=== PATIENT | male | born 1940 | race Caucasian/White ===

== ENCOUNTER 2018-11-02 15:35 | Emergency (ER) | payer MEDICARE, BC, OTHER ==
--- NOTE | 2018-11-02 16:05 | EDM.PDOC ---
ED HPI GENERAL MEDICAL PROBLEM - General Chief Complaint: Respiratory Problem Stated Complaint: LEFT SIDE OF BODY PAINS,SOB Time Seen by Provider: 11/02/18 15:50 Source of Information: Reports: Patient, Family History Limitations: Reports: No Limitations - History of Present Illness INITIAL COMMENTS - FREE TEXT/NARRATIVE: This 78 yo male patient reports to the ED with increased shortness of breath and intermittent left sided pain. The patient reports his shortness of breath has gotten much worse today. The patient's reports she tried to get an appointment in the [facility], but his provider did not have any additional appointments today. The patient's provider advised him to come to the ED to be seen. The patient reports he did not have a neb treatment today because he forgot. The patient reports increased pain in the right side of his back when he takes deep breaths. The patient denies any history of falls or other trauma. Onset: Today Duration: Constant Location: Reports: Chest, Back (upper back (initially left side then right side with deep breaths)) Quality: Reports: Ache, Sharp Severity: Moderate Improves with: Reports: None Worsens with: Reports: Breathing Associated Symptoms: Reports: Shortness of Breath (with a history of COPD) Treatments BOTTOM TURNER: Denies: Breathing Treatments - Related Data Allergies Allergy/AdvReac Type Severity Reaction Status Date / Time Penicillins Allergy Severe Hives Verified 11/02/18 15:51 lorazepam [From Ativan] Allergy Agitation Verified 11/02/18 15:51 Sulfa (Sulfonamide Allergy Itching Verified 11/02/18 15:51 Antibiotics) Home Meds: Home Meds Albuterol Sulfate [Ventolin Hfa] 2 puff IH Q6HR PRN 02/09/14 [History] Albuterol [Proventil Neb Soln] 1 ampule NEB QID PRN 02/09/14 [History] Aspirin [Low Dose Aspirin EC] 81 mg PO DAILY 02/09/14 [History] Cholecalciferol (Vitamin D3) [Vitamin D] 2,000 unit PO DAILY 02/09/14 [History] Citalopram Hydrobromide [Celexa] 20 mg PO DAILY 02/09/14 [History] Clopidogrel [Plavix] 75 mg PO DAILY 02/09/14 [History] Docusate Sodium [Colace] 100 mg PO DAILY PRN 02/09/14 [History] Nitroglycerin [Nitrostat] 0.4 mg SL ASDIRECTED PRN 02/09/14 [History] Omeprazole 40 mg PO QAM 02/09/14 [History] Tamsulosin [Tamsulosin 24 Hr] 0.4 mg PO BEDTIME 02/09/14 [History] Tiotropium [Spiriva Handihaler] 1 cap INH DAILY 02/09/14 [History] Tristan Cit/Mag/D3/Zn/Business Unit Manager/Marcelino/Bor [Citracal-Vit D + Magnesium] 2 tab PO DAILY 10/06 [History] Finasteride 5 mg PO DAILY 02/25/17 [History] Past Medical History HEENT History: Reports: Hard of Hearing, Impaired Vision Cardiovascular History: Reports: Pacemaker, Stents Respiratory History: Reports: COPD Genitourinary History: Reports: BPH Neurological History: Reports: Other (See Below) Other Neuro History: very forgetful Endocrine/Metabolic History: Reports: Diabetes, Type II - Past Surgical History GI Surgical History: Reports: Other (See Below) Social & Family History - Family History Family Medical History: Noncontributory - Tobacco Use Smoking Status *Q: Former Smoker Used Tobacco, but Quit: Yes Month/Year Tobacco Last Used: 1979 - Caffeine Use Caffeine Use: Reports: Coffee - Recreational Drug Use Recreational Drug Use: No ED ROS GENERAL - Review of Systems Review Of Systems: ROS reveals no pertinent complaints other than HPI. ED EXAM, GENERAL - Physical Exam Exam: See Below Exam Limited By: No Limitations General Appearance: Alert, WD/WN, Mild Distress, Thin Eye Exam: Bilateral Eye: EOMI, Normal Inspection, PERRL Ears: Normal External Exam, Normal Canal, Hearing Grossly Normal, Normal TMs Nose: Normal Inspection, Normal Mucosa, No Blood Throat/Mouth: Normal Inspection, Normal Lips, Normal Teeth, Normal Gums, Normal Oropharynx, Normal Voice, No Airway Compromise Head: Atraumatic, Normocephalic Neck: Normal Inspection, Supple, Non-Tender, Full Range of Motion Respiratory/Chest: Decreased Breath Sounds (throughout lungs) Cardiovascular: Normal Peripheral Pulses, Regular Rate, Rhythm, No Edema, No Gallop, No JVD, No Murmur, No Rub GI/Abdominal: Normal Bowel Sounds, Soft, Non-Tender, No Organomegaly, No Distention, No Abnormal Bruit, No Mass (Male) Exam: Deferred Rectal (Males) Exam: Deferred Back Exam: Normal Inspection, Full Range of Motion, NT Extremities: Normal Inspection, Normal Range of Motion, Non-Tender, Normal Capillary Refill, No Pedal Edema Neurological: Alert, Oriented, CN II-XII Intact, Normal Cognition, Normal Gait, Normal Reflexes, No Motor/Sensory Deficits Psychiatric: Normal Affect, Normal Mood Skin Exam: Warm, Dry, Intact, Normal Color, No Rash Lymphatic: No Adenopathy Course - Vital Signs Last Recorded V/S: Last Vital Signs Temp 36.8 C 11/02/18 15:44 Pulse 79 11/02/18 16:25 Resp 25 H 11/02/18 15:44 BP 124/71 11/02/18 15:44 Pulse Ox 92 L 11/02/18 15:44 - Orders/Labs/Meds Orders: Active Orders 24 hr Category Date Time Status EKG Documentation Completion [RC] URGENT Care 11/02/18 15:43 Ordered RT Aerosol Therapy [RC] ASDIRECTED Care 11/02/18 16:07 Ordered CULTURE BLOOD [BC] Stat Lab 11/02/18 15:43 Ordered cefTRIAXone [Rocephin] 1 gm Med 11/02/18 17:07 Ordered Sodium Chloride 0.9% [Normal Saline] 50 ml IV ONETIME Medication Orders Ceftriaxone Sodium 1 gm/ (Sodium Chloride) 50 mls @ 50 mls/hr IV ONETIME ONE Stop: 11/02/18 18:06 Labs: Laboratory Tests 11/02/18 11/02/18 11/02/18 Range/Units 16:00 16:00 16:00 WBC 8.7 (5.0-10.0) 10^3/uL RBC 4.37 L (4.6-6.2) 10^6/uL Hgb 11.6 L (14.0-18.0) g/dL Hct 36.9 L (40.0-54.0) % MCV 84.4 (80-100) fL MCH 26.5 L (27.0-34.0) pg MCHC 31.4 L (33.0-35.0) g/dL Plt Count 182 (150-450) 10^3/uL Neut % (Auto) 68.5 (42.2-75.2) % Lymph % (Auto) 18.7 L (20.5-50.1) % [place] % (Auto) 10.2 H (2-8) % Eos % (Auto) 2.4 (1.0-3.0) % Baso % (Auto) 0.2 (0.0-1.0) % Sodium (135-145) mmol/L Potassium (3.6-5.0) mmol/L Chloride (101-111) mmol/L Carbon Dioxide (21.0-31.0) mmol/L Anion Gap BUN (7-18) mg/dL Creatinine (0.6-1.3) mg/dL Est Cr Clr Drug Dosing mL/min Estimated GFR (MDRD) BUN/Creatinine Ratio Glucose (74-105) mg/dL Lactic Acid 1.9 (0.5-2.2) mmol/L Calcium (8.4-10.2) mg/dl Total Bilirubin (0.2-1.0) mg/dL AST (10-42) IU/L ALT (10-60) IU/L Alkaline Phosphatase (42-121) IU/L Troponin I (0.00-0.02) ng/ml B-Natriuretic Peptide 71 (0-100) pg/ml Total Protein (6.7-8.2) g/dl Albumin (3.2-5.5) g/dl Globulin Albumin/Globulin Ratio 11/02/18 Range/Units 16:00 WBC (5.0-10.0) 10^3/uL RBC (4.6-6.2) 10^6/uL Hgb (14.0-18.0) g/dL Hct (40.0-54.0) % MCV (80-100) fL MCH (27.0-34.0) pg MCHC (33.0-35.0) g/dL Plt Count (150-450) 10^3/uL Neut % (Auto) (42.2-75.2) % Lymph % (Auto) (20.5-50.1) % [place] % (Auto) (2-8) % Eos % (Auto) (1.0-3.0) % Baso % (Auto) (0.0-1.0) % Sodium 140 (135-145) mmol/L Potassium 3.8 (3.6-5.0) mmol/L Chloride 105 (101-111) mmol/L Carbon Dioxide 25.0 (21.0-31.0) mmol/L Anion Gap 13.8 BUN 19 H (7-18) mg/dL Creatinine 1.6 H (0.6-1.3) mg/dL Est Cr Clr Drug Dosing 34.18 mL/min Estimated GFR (MDRD) 42 BUN/Creatinine Ratio 11.87 Glucose 147 H (74-105) mg/dL Lactic Acid (0.5-2.2) mmol/L Calcium 8.7 (8.4-10.2) mg/dl Total Bilirubin 0.7 (0.2-1.0) mg/dL AST 19 (10-42) IU/L ALT 8 L (10-60) IU/L Alkaline Phosphatase 74 (42-121) IU/L Troponin I < 0.02 (0.00-0.02) ng/ml B-Natriuretic Peptide (0-100) pg/ml Total Protein 6.8 (6.7-8.2) g/dl Albumin 3.8 (3.2-5.5) g/dl Globulin 3.0 Albumin/Globulin Ratio 1.27 Meds: Medications Generic Name Dose Route Start Last Admin Trade Name Freq PRN Reason Stop Dose Admin Ceftriaxone Sodium 1 gm/ 50 mls @ 50 mls/hr 11/02/18 17:07 Sodium Chloride IV 11/02/18 18:06 ONETIME ONE Discontinued Medications Generic Name Dose Route Start Last Admin Trade Name Freq PRN Reason Stop Dose Admin Albuterol/Ipratropium 3 ml 11/02/18 16:07 11/02/18 16:25 Duoneb 3.0-0.5 Mg/3 Ml NEB 11/02/18 16:08 3 ml ONETIME ONE Administration Methylprednisolone Sodium Succinate 40 mg 11/02/18 17:07 Solu-Medrol IVPUSH 11/02/18 17:08 ONETIME ONE Departure - Departure Time of Disposition: 17:14 Disposition: Home, Self-Care 01 Condition: Fair Clinical Impression: COPD exacerbation, Bronchitis - Discharge Information *PRESCRIPTION DRUG MONITORING PROGRAM REVIEWED*: Not Applicable *COPY OF PRESCRIPTION DRUG MONITORING REPORT IN PATIENT JOE: Not Applicable Instructions: Chronic Obstructive Pulmonary Disease, [id number], Acute Bronchitis, Adult, [id number] Forms: ED Department Discharge Care Plan Goals: The patient was advised of the examination, lab and x-ray results during the visit. The patient was given a breathing treatment, a dose of IV antibiotics and a dose of IV steroids while in the ED. The patient was discharged with a script for Azithromycin (500 mg) #5 to take 1 by mouth daily for 5 days and Prednisone (20 mg) #10 to take 2 by mouth daily for 5 days. The patient should follow-up with his primary care facility for continued evaluation and management. If the patient has any additional symptoms or concerns, the patient should either return to the emergency department or visit his primary care facility. - My Orders Last 24 Hours: My Active Orders 11/02/18 15:43 EKG Documentation Completion [RC] URGENT CULTURE BLOOD [BC] Stat 11/02/18 16:07 RT Aerosol Therapy [RC] ASDIRECTED 11/02/18 17:07 cefTRIAXone [Rocephin] 1 gm Sodium Chloride 0.9% [Normal Saline] 50 ml IV ONETIME - Assessment/Plan Last 24 Hours: My Active Orders 11/02/18 15:43 EKG Documentation Completion [RC] URGENT CULTURE BLOOD [BC] Stat 11/02/18 16:07 RT Aerosol Therapy [RC] ASDIRECTED 11/02/18 17:07 cefTRIAXone [Rocephin] 1 gm Sodium Chloride 0.9% [Normal Saline] 50 ml IV ONETIME
[2018-11-02] MEDS ORDERED: Albuterol/Ipratropium 3.0-0.5 MG/3 ML Neb Soln NEB ONE (16:07)
[2018-11-02 16:30] LABS: ANION GAP 13.8; CHLORIDE,CL 105 mmol/L (101-111); SODIUM,NA 140 mmol/L (135-145)
[2018-11-02] MEDS ORDERED: cefTRIAXone 1 GM in Sodium Chloride 0.9% 50 ML IV ONE (17:07)
[2018-11-02] MEDS ORDERED: methylPREDNISolone Sodium Succinate 40 MG/1 ML SDV IVPUSH ONE (17:07)
--- NOTE | 2018-11-02 17:08 | CR ---
Clinical history: 78-year-old male complaining of shortness of breath. History COPD and cardiac pacemaker. Interpretation: PA lateral chest films confirm generalized air trapping and bullous lesions unchanged since to October 2016. Small heart without cephalization of flow alveolar edema or dependent effusion. Cardiac pacemaker leads intact. No new lung mass, hilar lymphadenopathy or focal lobar pneumonia. No atelectasis/collapse. No pneumothorax or free subdiaphragmatic air. 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 CONCLUSION: No acute new cardiopulmonary abnormality since October 2016 exam. Severe COPD.
[2018-11-02 18:07] VITALS: BP 107/90
== END 2018-11-02 18:11 | disposition home or self-care (01) ==
LOC: DL.ED 15:35
DX: J44.1 Chronic obstructive pulmonary disease with (acute) exacerbation (principal); J40 Bronchitis, not specified as acute or chronic; E11.9 Type 2 diabetes mellitus without complications; Z87.891 Personal history of nicotine dependence; Z88.8 Allergy status to other drugs, medicaments and biological substances; Z95.5 Presence of coronary angioplasty implant and graft; Z88.2 Allergy status to sulfonamides; Z79.899 Other long term (current) drug therapy
CPT/HCPCS: 36415; 71046; 80053; 83605; 83880; 84484; 85025; 87040; 93005; 94640; 96365; 96375; 99285; J0696; J2920; J7050; J7620-GY

== ENCOUNTER 2019-01-15 20:29 | Emergency (ER) | payer MEDICARE, BC, OTHER ==
[2019-01-15 20:43] VITALS: BP 120/82
--- NOTE | 2019-01-15 23:17 | EDM.PDOC ---
ED HPI GENERAL MEDICAL PROBLEM - General Chief Complaint: General Stated Complaint: NOT FEELING WELL [id number] Time Seen by Provider: 01/15/19 22:00 Source of Information: Reports: Patient, Family, RN History Limitations: Reports: Other - History of Present Illness INITIAL COMMENTS - FREE TEXT/NARRATIVE: ED with spouse with vague c/o of "something with right wrist' Ongoing at least 1-2 days, intermittent, laternating with 1-2 weeks, Patient unsure if weakness or pain, Unsure if numb. No c/o of generalized weakness . No fever reported by patient or spouse. Appetite gradually decreasing, slow weight loss over period of months. Oxygen dependent at night. not noting any symptoms, states patient just thought he should be checked out. [facility] care at [facility]. Right Hand Pain Score (Numeric/FACES): 6 - Related Data Allergies Allergy/AdvReac Type Severity Reaction Status Date / Time Penicillins Allergy Severe Hives Verified 01/15/19 20:49 lorazepam [From Ativan] Allergy Agitation Verified 01/15/19 20:49 Sulfa (Sulfonamide Allergy Itching Verified 01/15/19 20:49 Antibiotics) Home Meds: Home Meds Albuterol Sulfate [Ventolin Hfa] 2 puff IH Q6HR PRN 02/09/14 [History] Albuterol [Proventil Neb Soln] 1 ampule NEB QID PRN 02/09/14 [History] Aspirin [Low Dose Aspirin EC] 81 mg PO DAILY 02/09/14 [History] Cholecalciferol (Vitamin D3) [Vitamin D] 2,000 unit PO DAILY 02/09/14 [History] Citalopram Hydrobromide [Celexa] 20 mg PO DAILY 02/09/14 [History] Clopidogrel [Plavix] 75 mg PO DAILY 02/09/14 [History] Docusate Sodium [Colace] 100 mg PO DAILY PRN 02/09/14 [History] Nitroglycerin [Nitrostat] 0.4 mg SL ASDIRECTED PRN 02/09/14 [History] Omeprazole 40 mg PO QAM 02/09/14 [History] Tamsulosin [Tamsulosin 24 Hr] 0.4 mg PO BEDTIME 02/09/14 [History] Tiotropium [Spiriva Handihaler] 1 cap INH DAILY 02/09/14 [History] Tristan Cit/Mag/D3/Zn/Drive In Waiter/Waitress/Marcelino/Bor [Citracal-Vit D + Magnesium] 2 tab PO DAILY 10/06 [History] Finasteride 5 mg PO DAILY 02/25/17 [History] Past Medical History HEENT History: Reports: Hard of Hearing, Impaired Vision Cardiovascular History: Reports: Pacemaker, Stents Respiratory History: Reports: COPD Genitourinary History: Reports: BPH Neurological History: Reports: Other (See Below) Other Neuro History: very forgetful Endocrine/Metabolic History: Reports: Diabetes, Type II - Past Surgical History GI Surgical History: Reports: Other (See Below) Social & Family History - Family History Family Medical History: Noncontributory - Tobacco Use Smoking Status *Q: Former Smoker Used Tobacco, but Quit: Yes Month/Year Tobacco Last Used: 1992 - Caffeine Use Caffeine Use: Reports: Coffee, Soda - Recreational Drug Use Recreational Drug Use: No ED ROS GENERAL - Review of Systems Review Of Systems: ROS reveals no pertinent complaints other than HPI. ED EXAM, GENERAL - Physical Exam Exam: See Below Exam Limited By: No Limitations General Appearance: Alert, No Apparent Distress, Thin Eye Exam: Bilateral Eye: EOMI Ears: Normal External Exam, Hearing Loss Nose: Normal Inspection Throat/Mouth: Normal Inspection Head: Atraumatic, Normocephalic Neck: Normal Inspection, Full Range of Motion Respiratory/Chest: No Respiratory Distress, Lungs Clear, Decreased Breath Sounds. No: Respiratory Distress, Rales, Wheezing Cardiovascular: Normal Peripheral Pulses GI/Abdominal: Normal Bowel Sounds Extremities: Normal Inspection, Normal Range of Motion, No Pedal Edema, Normal Capillary Refill. No: Slow Capillary Refill, Joint Swelling, Limited Range of Motion, Increased Warmth, Mottled, Pallor, Redness Neurological: Alert, Oriented, No Motor/Sensory Deficits, Other (forgetful) Psychiatric: Normal Affect, Normal Mood Skin Exam: Warm, Dry, Intact, Normal Color Course - Vital Signs Last Recorded V/S: Last Vital Signs Temp 97.8 F 01/15/19 20:40 Pulse 78 01/15/19 20:40 Resp 20 01/15/19 20:40 BP 120/82 01/15/19 20:40 Pulse Ox 94 L 01/15/19 20:40 - Orders/Labs/Meds Labs: Laboratory Tests 01/15/19 01/15/19 Range/Units 22:54 22:54 WBC 7.3 (5.0-10.0) 10^3/uL RBC 4.79 (4.6-6.2) 10^6/uL Hgb 12.9 L (14.0-18.0) g/dL Hct 40.4 (40.0-54.0) % MCV 84.3 (80-100) fL MCH 26.9 L (27.0-34.0) pg MCHC 31.9 L (33.0-35.0) g/dL Plt Count 167 (150-450) 10^3/uL Neut % (Auto) 63.4 (42.2-75.2) % Lymph % (Auto) 21.2 (20.5-50.1) % [place] % (Auto) 10.7 H (2-8) % Eos % (Auto) 4.3 H (1.0-3.0) % Baso % (Auto) 0.4 (0.0-1.0) % Sodium 139 (135-145) mmol/L Potassium 4.0 (3.6-5.0) mmol/L Chloride 102 (101-111) mmol/L Carbon Dioxide 27.0 (21.0-31.0) mmol/L Anion Gap 14.0 BUN 25 H (7-18) mg/dL Creatinine 1.1 (0.6-1.3) mg/dL Est Cr Clr Drug Dosing 49.71 mL/min Estimated GFR (MDRD) > 60 BUN/Creatinine Ratio 22.72 Glucose 266 H (74-105) mg/dL Calcium 9.1 (8.4-10.2) mg/dl Total Bilirubin 0.8 (0.2-1.0) mg/dL AST 16 (10-42) IU/L ALT 13 (10-60) IU/L Alkaline Phosphatase 76 (42-121) IU/L Total Protein 7.1 (6.7-8.2) g/dl Albumin 4.1 (3.2-5.5) g/dl Globulin 3.0 Albumin/Globulin Ratio 1.37 Departure - Departure Time of Disposition: 23:42 Disposition: Home, Self-Care 01 Condition: Good Clinical Impression: Anxiety about health, Hyperglycemia COPD (chronic obstructive pulmonary disease) Qualifiers: COPD type: chronic bronchitis Chronic bronchitis type: simple Qualified Code(s) : J41.0 - Simple chronic bronchitis - Discharge Information *PRESCRIPTION DRUG MONITORING PROGRAM REVIEWED*: Not Applicable *COPY OF PRESCRIPTION DRUG MONITORING REPORT IN PATIENT JOE: Not Applicable Instructions: Arthritis Referrals: PCP,None [Primary Care Provider] - Forms: ED Department Discharge Additional Instructions: continue home medications follow up with primary care one week , sooner if change in status
[2019-01-15 23:36] LABS: CHLORIDE,CL 102 mmol/L (101-111); SODIUM,NA 139 mmol/L (135-145)
== END 2019-01-15 23:50 | disposition home or self-care (01) ==
LOC: DL.ED 20:29
DX: F41.9 Anxiety disorder, unspecified (principal); J41.0 Simple chronic bronchitis; E11.65 Type 2 diabetes mellitus with hyperglycemia; Z88.0 Allergy status to penicillin; Z88.8 Allergy status to other drugs, medicaments and biological substances; Z88.2 Allergy status to sulfonamides; Z79.899 Other long term (current) drug therapy; Z79.82 Long term (current) use of aspirin; Z87.891 Personal history of nicotine dependence
CPT/HCPCS: 36415; 80053; 85025; 99283

== ENCOUNTER 2021-01-17 17:21 | Emergency (ER) | payer MEDICARE, BC, OTHER ==
[2021-01-17] MEDS ORDERED: Ondansetron 4 MG/2 ML SDV IV ONE (17:42)
[2021-01-17] MEDS ORDERED: fentaNYL 100 MCG/2 ML SDV IVPUSH ONE (17:42)
[2021-01-17] MEDS ORDERED: Sodium Chloride 0.9% 500 ML IV SCH (17:45)
[2021-01-17] MEDS: Sodium Chloride 0.9% 10 ML Syringe FLUSH PRN ×2 (17:59→18:06)
[2021-01-17 18:17] LABS: ANION GAP 11.4 mEq/L (7-13); CHLORIDE,CL 101 mmol/L (98-107); SODIUM,NA 140 mmol/L (136-145)
--- NOTE | 2021-01-17 18:44 | EDM.PDOC ---
Scribed by Georgia Felder 01/17/21 1839 for Awais Gautam MD <Awais Gautam - Last Filed: 01/17/21 18:38> ED HPI GENERAL MEDICAL PROBLEM - General Chief Complaint: General Stated Complaint: AMBULANCE Time Seen by Provider: 01/17/21 17:31 Source of Information: Reports: Patient, EMS, EMS Notes Reviewed, RN, RN Notes Reviewed History Limitations: Reports: No Limitations - History of Present Illness INITIAL COMMENTS - FREE TEXT/NARRATIVE: Patient arrives to the ED by [facility]. Patient states he fell at home from a standing position and has pain to the right posterior chest wall and back. Denies hitting his head. Denies neck pain or injury. 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 He now weighs 82 pounds. Patient states that he is suppose to have an EGD this coming week. Denies fever or chills. Onset: Today Duration: Constant Location: Reports: Neck, Chest Quality: Reports: Ache Severity: Severe Improves with: Reports: None Worsens with: Reports: None Associated Symptoms: Reports: No Other Symptoms - Related Data Allergies Allergy/AdvReac Type Severity Reaction Status Date / Time Penicillins Allergy Severe Hives Verified 01/17/21 18:12 lorazepam [From Ativan] Allergy Agitation Verified 01/17/21 18:12 Sulfa (Sulfonamide Allergy Itching Verified 01/17/21 18:12 Antibiotics) Home Meds: Home Meds Albuterol Sulfate [Ventolin Hfa] 2 puff IH Q6HR PRN 02/09/14 [History] Albuterol [Proventil Neb Soln] 1 ampule NEB QID PRN 02/09/14 [History] Aspirin [Low Dose Aspirin EC] 81 mg PO DAILY 02/09/14 [History] Cholecalciferol (Vitamin D3) [Vitamin D] 2,000 unit PO DAILY 02/09/14 [History] Citalopram Hydrobromide [Celexa] 20 mg PO DAILY 02/09/14 [History] Docusate Sodium [Colace] 100 mg PO DAILY PRN 02/09/14 [History] Nitroglycerin [Nitrostat] 0.4 mg SL ASDIRECTED PRN 02/09/14 [History] Omeprazole 40 mg PO QAM 02/09/14 [History] Tamsulosin [Tamsulosin 24 Hr] 0.4 mg PO BEDTIME 02/09/14 [History] Tiotropium [Spiriva Handihaler] 1 cap INH DAILY 02/09/14 [History] Tristan Cit/Mag/D3/Zn/Outside Deliverer/Marcelino/Bor [Citracal-Vit D + Magnesium] 2 tab PO DAILY 10/06/14 [History] Finasteride 5 mg PO DAILY 02/25/17 [History] Past Medical History HEENT History: Reports: Hard of Hearing, Impaired Vision Cardiovascular History: Reports: Pacemaker, Stents Respiratory History: Reports: COPD Genitourinary History: Reports: BPH Neurological History: Reports: Other (See Below) Other Neuro History: very forgetful Endocrine/Metabolic History: Reports: Diabetes, Type II - Past Surgical History GI Surgical History: Reports: Other (See Below) Social & Family History - Family History Family Medical History: No Pertinent Family History - Caffeine Use Caffeine Use: Reports: Coffee, Soda ED ROS GENERAL - Review of Systems Review Of Systems: Comprehensive ROS is negative, except as noted in HPI. ED EXAM, GENERAL - Physical Exam Exam: See Below Exam Limited By: No Limitations General Appearance: Alert, No Apparent Distress, Thin, Cachetic Eye Exam: Bilateral Eye: EOMI, Normal Inspection, PERRL Ears: Hearing Loss (Chronic) Nose: Normal Inspection, No Blood Throat/Mouth: Normal Lips, Normal Voice, No Airway Compromise Head: Atraumatic, Normocephalic Neck: Normal Inspection, Supple, Non-Tender, Full Range of Motion, Other (C- spine cleared by Hx and exam.) Respiratory/Chest: No Respiratory Distress, No Accessory Muscle Use, Decreased Breath Sounds, Crackles (Coarse breath sounds), Other (Right posterior chest wall tenderness overlying the ribs.). No: Rales, Rhonchi, Wheezing Cardiovascular: Regular Rate, Rhythm, No Edema GI/Abdominal: Normal Bowel Sounds, Soft, No Distention, Tender (RUQ and LUQ tenderness). No: Guarding, Rigid, Rebound Back Exam: Decreased Range of Motion, Vertebral Tenderness (Generalized thoracic and lumbar regional tenderness) Extremities: Normal Inspection, Normal Range of Motion, Non-Tender, Normal Capillary Refill, No Pedal Edema Neurological: Alert, Oriented (to person and "hospital" only. Unware of date or specific town.), No Motor/Sensory Deficits Psychiatric: Normal Affect, Normal Mood Skin Exam: Warm, Dry, Intact, No Rash Course - Re-Assessments/Exams Free Text/Narrative Re-Assessment/Exam: 01/17/21 19:00 Care of pt transferred to Lai CHISHOLM at shift change. Departure - Departure Disposition: Home, Self-Care Clinical Impression: Fall from ground level, History of progressive weakness - Discharge Information Forms: ED Department Discharge Care Plan Goals: The patient's was advised of the examination, lab and CT results during the visit. The discussed possible hospitalization with our hospitalist (Dr. Sierra) and decided to bring the patient home with her. The patient should follow- up with his primary care facility next week for continued evaluation and management. If the patient has any additional symptoms or concerns, the patient should either return to the emergency department or visit his primary care facility. Sepsis Event Note (ED) - Evaluation Sepsis Screening Result: No Definite Risk <Lai Tim M - Last Filed: 01/17/21 21:55> Course - Vital Signs Last Recorded V/S: Last Vital Signs Temp 37.1 C 01/17/21 18:46 Pulse 80 01/17/21 18:46 Resp 19 01/17/21 18:46 BP 124/87 01/17/21 18:46 Pulse Ox 97 01/17/21 18:46 - Orders/Labs/Meds Orders: Active Orders 24 hr Category Date Time Status Peripheral IV Care [RC] . DIRECTED Care 01/17/21 17:40 Active UA RFX JENS AND CULT IF INDIC [URIN] Stat Lab 01/17/21 17:40 Ordered Sodium Chloride 0.9% [Normal Saline] 500 ml Med 01/17/21 17:45 Active IV .BOLUS Sodium Chloride 0.9% [Saline Flush] Med 01/17/21 17:39 Active 10 ml FLUSH ASDIRECTED PRN Peripheral IV Insertion Adult [OM.PC] Stat Oth 01/17/21 17:40 Ordered Medication Orders Sodium Chloride (Normal Saline) 500 mls @ 250 mls/hr IV .BOLUS MIA Last Admin: 01/17/21 18:45 Dose: 250 mls/hr Documented by: KACI Sodium Chloride (Sodium Chloride 0.9% 10 Ml Syringe) 10 ml FLUSH ASDIRECTED PRN PRN Reason: Keep Vein Open Last Admin: 01/17/21 18:06 Dose: 10 ml Documented by: Admin: 01/17/21 17:59 Dose: 10 ml Documented by: HARRISON Labs: Laboratory Tests 01/17/21 01/17/21 01/17/21 Range/Units 17:51 17:51 19:51 WBC 6.7 (5.0-10.0) 10^3/uL RBC 4.87 (4.6-6.2) 10^6/uL Hgb 15.0 D (14.0-18.0) g/dL Hct 45.2 (40.0-54.0) % MCV 92.8 D (80-100) fL MCH 30.8 (27.0-34.0) pg MCHC 33.2 (33.0-35.0) g/dL Plt Count 175 (150-450) 10^3/uL Neut % (Auto) 68.6 (42.2-75.2) % Lymph % (Auto) 23.6 (20.5-50.1) % Cass % (Auto) 7.3 (2-8) % Eos % (Auto) 0.4 L (1.0-3.0) % Baso % (Auto) 0.1 (0.0-1.0) % Sodium 140 (136-145) mmol/L Potassium 4.4 (3.5-5.1) mmol/L Chloride 101 (98-107) mmol/L Carbon Dioxide 32 (21-32) mmol/L Anion Gap 11.4 (7-13) mEq/L BUN 22 H (7-18) mg/dL Creatinine 1.12 (0.70-1.30) mg/dL Est Cr Clr Drug Dosing 27.76 mL/min Estimated GFR (MDRD) > 60 BUN/Creatinine Ratio 19.6 (No establ ref range) Glucose 188 H (70-99) mg/dL Calcium 9.0 (8.5-10.1) mg/dL Total Bilirubin 0.9 (0.2-1.0) mg/dL AST 14 L (15-37) U/L ALT 19 (16-63) U/L Alkaline Phosphatase 76 (46-116) U/L B-Natriuretic Peptide 99 (0-100) pg/ml Total Protein 6.8 (6.4-8.2) g/dL Albumin 3.4 (3.4-5.0) g/dL Globulin 3.4 Albumin/Globulin Ratio 1.0 SARS-CoV-2 RNA (KERRI) Negative (NEGATIVE) Meds: Medications Generic Name Dose Route Start Last Admin Trade Name Freq PRN Reason Stop Dose Admin Sodium Chloride 500 mls @ 250 mls/hr 01/17/21 17:45 01/17/21 18:45 Normal Saline IV 250 mls/hr .BOLUS MIA Administration Sodium Chloride 10 ml 01/17/21 17:39 01/17/21 18:06 Sodium Chloride 0.9% 10 Ml Syringe FLUSH 10 ml ASDIRECTED PRN Administration Keep Vein Open Discontinued Medications Generic Name Dose Route Start Last Admin Trade Name Freq PRN Reason Stop Dose Admin Fentanyl 25 mcg 01/17/21 17:42 01/17/21 18:03 Fentanyl 100 Mcg/2 Ml Sdv IVPUSH 01/17/21 17:43 25 mcg ONETIME ONE Administration Ondansetron HCl 4 mg 01/17/21 17:42 01/17/21 17:58 Ondansetron 4 Mg/2 Ml Sdv IV 01/17/21 17:43 4 mg ONETIME ONE Administration - Re-Assessments/Exams Free Text/Narrative Re-Assessment/Exam: 01/17/21 19:37 Patient care was taken over at shift change. The patient's CT results were reviewed. The patient was advised of the CT results. The patient had a difficult time relaying anything about his history or reason for visit. The patient spoke about a truck. A CT of his head was ordered due to the level of confusion. 01/17/21 19:47 The patient's was present and reports that the patient is normally very confused. The reports she has been talking with the patient's primary care provider (Noy Chang) over the past 3 weeks with the intention of getting the patient into a care facility ([facility] but there has not been any progress in that direction at this time. The patient's reports she has been having more difficulties caring for the patient throughout the past year. The patient is not able to care for himself while at home. 01/17/21 21:52 Dr. Sierra (Hospitalist) came to the ED to discuss possible options with the patient's . The patient's requested to have the patient discharged to home with her. She will work with his primary care provider for continued evaluation and care (possible group home). Departure - Departure Time of Disposition: 21:53 Condition: Fair - Discharge Information *PRESCRIPTION DRUG MONITORING PROGRAM REVIEWED*: Not Applicable *COPY OF PRESCRIPTION DRUG MONITORING REPORT IN PATIENT JOE: Not Applicable Sepsis Event Note (ED) - Focused Exam Vital Signs: Vital Signs Temp Pulse Resp BP Pulse Ox 01/17/21 18:46 37.1 C 80 19 124/87 97 01/17/21 17:30 36.4 C 82 29 H 145/109 H 100 I have read and agree with the documentation that has been completed regarding this visit. By signing this record, I attest that the documentation was completed in my physical presence and is an accurate record of the encounter.
[2021-01-17 18:46] VITALS: BP 124/87; PULSE 80
--- NOTE | 2021-01-17 19:20 | CT ---
PROCEDURE INFORMATION: Exam: CT Thoracic Spine Without Contrast Exam date and time: 01/17/2021 6:34 PM Age: 80 years old Clinical indication: Other: Fall; Additional info: Fall, back pain TECHNIQUE: Imaging protocol: Computed tomography images of the thoracic spine without contrast. Radiation optimization: All CT scans at this facility use at least one of these dose optimization techniques: automated exposure control; mA and/or kV adjustment per patient size (includes targeted exams where dose is matched to clinical indication); or iterative reconstruction. COMPARISON: No relevant prior studies available. FINDINGS: Vertebrae: [id number] grade degenerative changes are present within the thoracic spine. No compression fracture identified. Small sclerotic foci are present within the T5 and T6 vertebral bodies. These are nonspecific and could represent small vertebral hemangiomas or bone islands. They have a generally benign appearance. 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 IMPRESSION: 1. No acute abnormality within the thoracic spine. Benign-appearing sclerotic lesions within T5 and T6 possibly representing small hemangiomas or bone islands. No compression fracture identified. 2. Moderate to advanced COPD/emphysema.
--- NOTE | 2021-01-17 19:21 | CT ---
PROCEDURE INFORMATION: Exam: CT Lumbar Spine Without Contrast Exam date and time: 01/17/2021 6:34 PM Age: 80 years old Clinical indication: Other: Fall; Additional info: Fall, back pain TECHNIQUE: Imaging protocol: Computed tomography images of the lumbar spine without contrast. Radiation optimization: All CT scans at this facility use at least one of these dose optimization techniques: automated exposure control; mA and/or kV adjustment per patient size (includes targeted exams where dose is matched to clinical indication); or iterative reconstruction. COMPARISON: No relevant prior studies available. FINDINGS: Vertebrae: Moderate to advanced degenerative changes are present within the lumbar spine most advanced at L5-S1. Vertebral body height and alignment are well maintained. No compression fractures are identified. Sclerotic lesion present within the anterior aspect of the L5 vertebral body on the right. This is nonspecific and could represent a hemangioma. Stomach and bowel: Moderate amount of stool is noted within the colon especially the rectosigmoid junction. Fecal impaction is possible. Soft tissues: Unremarkable. IMPRESSION: 1. Degenerative change without acute fracture or subluxation within the lumbar spine. 2. Incidental note is made of a large amount of stool within the colon especially the rectosigmoid junction. Fecal impaction is possible.
--- NOTE | 2021-01-17 19:27 | CT ---
PROCEDURE INFORMATION: Exam: CT Chest Without Contrast; Diagnostic Exam date and time: 01/17/2021 6:34 PM Age: 80 years old Clinical indication: Other: Pain; Additional info: Fall, RT posterior chest pain, abdominal pain TECHNIQUE: Imaging protocol: Diagnostic computed tomography of the chest without contrast. Radiation optimization: All CT scans at this facility use at least one of these dose optimization techniques: automated exposure control; mA and/or kV adjustment per patient size (includes targeted exams where dose is matched to clinical indication); or iterative reconstruction. COMPARISON: No relevant prior studies available. FINDINGS: Tubes, catheters and devices: A left-sided pacemaker is present. Lungs: Moderate to advanced COPD/emphysema present within the lungs. No significant pulmonary mass or nodule identified. Depending on smoking history, consider low-dose annual screening CT scan. Pleural spaces: Unremarkable. No pneumothorax. No pleural effusion. Heart: Moderate grade atherosclerotic changes present involving the coronary arteries. The heart is not enlarged. There is no pericardial effusion. Aorta: Unremarkable. No aortic aneurysm. Lymph nodes: Unremarkable. No enlarged lymph nodes. Bones/joints: Moderate grade degenerative changes are present within the thoracic spine. No compression fracture identified. Soft tissues: Unremarkable. IMPRESSION: 1. Moderate to advanced COPD/emphysema. 2. Degenerative change within the thoracic spine. No acute fracture the thoracic vertebral bodies or ribs identified. PROCEDURE INFORMATION: Exam: CT Abdomen And Pelvis Without Contrast Exam date and time: 01/17/2021 6:34 PM Age: 80 years old Clinical indication: Other: Pain; Additional info: Fall, RT posterior chest pain, abdominal pain TECHNIQUE: Imaging protocol: Computed tomography of the abdomen and pelvis without contrast. Radiation optimization: All CT scans at this facility use at least one of these dose optimization techniques: automated exposure control; mA and/or kV adjustment per patient size (includes targeted exams where dose is matched to clinical indication); or iterative reconstruction. COMPARISON: No relevant prior studies available. FINDINGS: Liver: Normal. No mass. Gallbladder and bile ducts: The gallbladder appears to have been removed. There is no biliary ductal dilatation. Pancreas: Normal. No ductal dilation. Spleen: Normal. No splenomegaly. Adrenal glands: Normal. No mass. Kidneys and ureters: Normal. No hydronephrosis. Stomach and bowel: Large amount of stool is present within the colon especially the rectosigmoid junction. Mild distention proximal colonic loops identified. Findings suggest possible fecal impaction with possible early obstructive features. There appears to be circumferential wall thickening of the rectosigmoid junction. Correlate for possible proctitis or rectal mass. Appendix: No evidence of appendicitis. Intraperitoneal space: Unremarkable. No free air. No significant fluid collection. Vasculature: Moderate grade atherosclerotic change of the abdominal aorta is present without aneurysm. Lymph nodes: Unremarkable. No enlarged lymph nodes. Urinary bladder: Unremarkable as visualized. Reproductive: Unremarkable as visualized. Bones/joints: Unremarkable. No acute fracture. Soft tissues: Unremarkable. IMPRESSION: 1. Large amount of stool within the colon especially the rectosigmoid junction. Findings compatible with fecal impaction. 2. Soft tissue thickening of the rectosigmoid junction. Question possible inflammatory change or potential rectal mass.
--- NOTE | 2021-01-17 20:40 | CT ---
PROCEDURE INFORMATION: Exam: CT Head Without Contrast Exam date and time: 01/17/2021 8:05 PM Age: 80 years old Clinical indication: Other: Fall; Additional info: Confusion TECHNIQUE: Imaging protocol: Computed tomography of the head without contrast. Radiation optimization: All CT scans at this facility use at least one of these dose optimization techniques: automated exposure control; mA and/or kV adjustment per patient size (includes targeted exams where dose is matched to clinical indication); or iterative reconstruction. COMPARISON: CT HEAD 10/29/2009 5:45 PM FINDINGS: Brain: Age-related involutional changes and chronic microvascular ischemic disease. No evidence for acute transcortical infarct. No mass effect or midline shift. No extra-axial collection. No acute intracranial hemorrhage. Basal cisterns are patent. Cerebral ventricles: No ventriculomegaly. Bones/joints: Unremarkable. No acute fracture. Paranasal sinuses: Visualized sinuses are unremarkable. No fluid levels. Mastoid air cells: Visualized mastoid air cells are well aerated. Orbital cavity: Bilateral cataract surgery. Soft tissues: Unremarkable. IMPRESSION: No evidence for acute transcortical infarct, acute intracranial hemorrhage, or mass effect.
== END 2021-01-17 22:20 | disposition home or self-care (01) ==
LOC: DL.ED 17:21
DX: R07.89 Other chest pain (principal); R53.1 Weakness; J44.9 Chronic obstructive pulmonary disease, unspecified; E11.9 Type 2 diabetes mellitus without complications; N40.0 Benign prostatic hyperplasia without lower urinary tract symptoms; Z88.0 Allergy status to penicillin; Z88.8 Allergy status to other drugs, medicaments and biological substances; Z88.2 Allergy status to sulfonamides; Z79.82 Long term (current) use of aspirin; Z79.899 Other long term (current) drug therapy; Z20.822 Contact with and (suspected) exposure to COVID-19; W18.30XA Fall on same level, unspecified, initial encounter; Y92.009 Unspecified place in unspecified non-institutional (private) residence as the place of occurrence of the external cause
CPT/HCPCS: 36415; 70450; 71250; 72128; 72131; 74176; 80053; 83880; 85025; 96374; 96375; 99284; J2405; J3010; J7040; U0002

== ENCOUNTER 2021-02-14 14:19 | Emergency (ER) | payer MEDICARE, BC, OTHER ==
--- NOTE | 2021-02-14 15:06 | EDM.PDOC ---
ED HPI GENERAL MEDICAL PROBLEM - General Chief Complaint: General Stated Complaint: IN BY [facility] Time Seen by Provider: 02/14/21 15:10 Source of Information: Reports: Patient, EMS History Limitations: Reports: Altered Mental Status - History of Present Illness INITIAL COMMENTS - FREE TEXT/NARRATIVE: ED via EMS with report of redness to penis. EMS note patient has been "failing in past couple of months. Lives at home with . Arrival Incontinent dried feces, , newspaper and garbage bag being used for diaper. Extremely frail. reports hx of dementia, paranoid at times , eating poorly. No recent fevers' or chills. No cough. No vomiting. Stoos soft, incontinent urine. - Related Data Allergies Allergy/AdvReac Type Severity Reaction Status Date / Time Penicillins Allergy Severe Hives Verified 02/14/21 19:39 lorazepam [From Ativan] Allergy Agitation Verified 02/14/21 19:39 Sulfa (Sulfonamide Allergy Itching Verified 02/14/21 19:39 Antibiotics) Home Meds: Home Meds Albuterol Sulfate [Ventolin Hfa] 2 puff IH Q6HR PRN 02/09/14 [History] Aspirin [Low Dose Aspirin EC] 81 mg PO DAILY 02/09/14 [History] Cholecalciferol (Vitamin D3) [Vitamin D] 2,000 unit PO DAILY 02/09/14 [History] Citalopram Hydrobromide [Celexa] 20 mg PO DAILY 02/09/14 [History] Docusate Sodium [Colace] 100 mg PO DAILY PRN 02/09/14 [History] Nitroglycerin [Nitrostat] 0.4 mg SL ASDIRECTED PRN 02/09/14 [History] Omeprazole 40 mg PO DAILY 02/09/14 [History] Tamsulosin [Tamsulosin 24 Hr] 0.4 mg PO BEDTIME 02/09/14 [History] Tiotropium [Spiriva Handihaler] 1 cap INH DAILY 02/09/14 [History] Finasteride 5 mg PO DAILY 02/25/17 [History] Budesonide [Pulmicort] 2 ml INH BID 02/14/21 [History] Calcium Carb, Citrate/Vit D3 [Calcium + D3 ER Tablet] 1 tab PO DAILY 02/14/21 [History] Fluticasone/Salmeterol [Advair 250-50] 1 puff INH BID 02/14/21 [History] Formoterol [Perforomist] 2 ml INH BID 02/14/21 [History] atorvaSTATin [Lipitor] 10 mg PO BEDTIME 02/14/21 [History] metFORMIN HCl [Metformin HCl] 500 mg PO WITHBREAKFAST 02/14/21 [History] Past Medical History HEENT History: Reports: Hard of Hearing, Impaired Vision Cardiovascular History: Reports: Pacemaker, Stents Respiratory History: Reports: COPD Genitourinary History: Reports: BPH Neurological History: Reports: Other (See Below) Other Neuro History: very forgetful Endocrine/Metabolic History: Reports: Diabetes, Type II - Infectious Disease History Infectious Disease History: Reports: None - Past Surgical History Cardiovascular Surgical History: Reports: Pacer GI Surgical History: Reports: Other (See Below) Other GI Surgeries/Procedures: multiple abd surgeries states that they go in and drain things and put in stents? Social & Family History - Family History Family Medical History: No Pertinent Family History - Caffeine Use Caffeine Use: Reports: Other ED ROS GENERAL - Review of Systems Review Of Systems: Comprehensive ROS is negative, except as noted in HPI. ED EXAM, GENERAL - Physical Exam Exam: See Below Exam Limited By: No Limitations General Appearance: Alert, Mild Distress, Thin Eye Exam: Bilateral Eye: EOMI Ears: Normal External Exam, Hearing Loss Nose: Normal Inspection Throat/Mouth: Normal Inspection Head: Atraumatic, Normocephalic Neck: Normal Inspection Respiratory/Chest: No Respiratory Distress, Lungs Clear, Decreased Breath Sounds (bases) Cardiovascular: Normal Peripheral Pulses, Regular Rate, Rhythm GI/Abdominal: Normal Bowel Sounds, Soft, Other (dark concentrated urine) #1 Interpretation EKG Date: 02/14/21 Time: 14:50 Rhythm: NSR Rate (Beats/Min): 93 Keyes: Normal P-Wave: Present QRS: Wide ST-T: Normal QT: Prolonged Comparison: NA - No Prior EKG Course - Vital Signs Last Recorded V/S: Last Vital Signs Temp 96 F L 02/14/21 15:06 Pulse 98 02/14/21 15:06 Resp 20 02/14/21 15:06 BP 118/77 02/14/21 15:06 Pulse Ox 90 L 02/14/21 15:06 - Orders/Labs/Meds Labs: Laboratory Tests 02/14/21 02/14/21 02/14/21 Range/Units 14:53 14:53 14:53 WBC 8.2 (5.0-10.0) 10^3/uL RBC 5.11 (4.6-6.2) 10^6/uL Hgb 16.1 (14.0-18.0) g/dL Hct 49.5 (40.0-54.0) % MCV 96.9 D (80-100) fL MCH 31.5 (27.0-34.0) pg MCHC 32.5 L (33.0-35.0) g/dL Plt Count 170 (150-450) 10^3/uL Neut % (Auto) 76.3 H (42.2-75.2) % Lymph % (Auto) 17.0 L (20.5-50.1) % Rincon % (Auto) 6.6 (2-8) % Eos % (Auto) 0.0 L (1.0-3.0) % Baso % (Auto) 0.1 (0.0-1.0) % Sodium 149 H (136-145) mmol/L Potassium 4.4 (3.5-5.1) mmol/L Chloride 112 H (98-107) mmol/L Carbon Dioxide 29 (21-32) mmol/L Anion Gap 12.4 (7-13) mEq/L BUN 37 H (7-18) mg/dL Creatinine 1.33 H (0.70-1.30) mg/dL Est Cr Clr Drug Dosing TNP Estimated GFR (MDRD) 52 BUN/Creatinine Ratio 27.8 (No establ ref range) Glucose 207 H (70-99) mg/dL Lactic Acid 3.5 H* (0.4-2.0) mmol/L Calcium 9.5 (8.5-10.1) mg/dL Magnesium 2.5 H (1.8-2.4) mg/dL Total Bilirubin 1.3 H (0.2-1.0) mg/dL AST 13 L (15-37) U/L ALT 19 (16-63) U/L Alkaline Phosphatase 93 (46-116) U/L Troponin I 0.024 (0.000-0.056) ng/mL Total Protein 7.2 (6.4-8.2) g/dL Albumin 3.6 (3.4-5.0) g/dL Globulin 3.6 Albumin/Globulin Ratio 1.0 Urine Color (YELLOW) Urine Appearance (CLEAR) Urine pH (5.0-9.0) Ur Specific [place] (1.005-1.030) Urine Protein (NEGATIVE) Urine Glucose (UA) (NEGATIVE) Urine Ketones (NEGATIVE) Urine Occult Blood (NEGATIVE) Urine Nitrite (NEGATIVE) Urine Bilirubin (NEGATIVE) Urine Urobilinogen (0.2-1.0) mg/dL Ur Leukocyte Esterase (NEGATIVE) Urine RBC /HPF Urine WBC (0-5/HPF) /HPF Ur Epithelial Cells (NOT SEEN) /HPF Calcium Oxalate Crystal (NOT SEEN) /HPF Amorphous Sediment (NOT SEEN) /HPF Urine Bacteria (0-FEW/HPF) /HPF Urine Mucus (NOT SEEN) /LPF SARS-CoV-2 RNA (KERRI) (NEGATIVE) 02/14/21 02/14/21 Range/Units 15:00 15:03 WBC (5.0-10.0) 10^3/uL RBC (4.6-6.2) 10^6/uL Hgb (14.0-18.0) g/dL Hct (40.0-54.0) % MCV (80-100) fL MCH (27.0-34.0) pg MCHC (33.0-35.0) g/dL Plt Count (150-450) 10^3/uL Neut % (Auto) (42.2-75.2) % Lymph % (Auto) (20.5-50.1) % [place] % (Auto) (2-8) % Eos % (Auto) (1.0-3.0) % Baso % (Auto) (0.0-1.0) % Sodium (136-145) mmol/L Potassium (3.5-5.1) mmol/L Chloride (98-107) mmol/L Carbon Dioxide (21-32) mmol/L Anion Gap (7-13) mEq/L BUN (7-18) mg/dL Creatinine (0.70-1.30) mg/dL Est Cr Clr Drug Dosing Estimated GFR (MDRD) BUN/Creatinine Ratio (No establ ref range) Glucose (70-99) mg/dL Lactic Acid (0.4-2.0) mmol/L Calcium (8.5-10.1) mg/dL Magnesium (1.8-2.4) mg/dL Total Bilirubin (0.2-1.0) mg/dL AST (15-37) U/L ALT (16-63) U/L Alkaline Phosphatase (46-116) U/L Troponin I (0.000-0.056) ng/mL Total Protein (6.4-8.2) g/dL Albumin (3.4-5.0) g/dL Globulin Albumin/Globulin Ratio Urine Color Jeniffer (YELLOW) Urine Appearance Cloudy (CLEAR) Urine pH 5.5 (5.0-9.0) Ur Specific [place] >= 1.030 (1.005-1.030) Urine Protein 30 H (NEGATIVE) Urine Glucose (UA) Negative (NEGATIVE) Urine Ketones Negative (NEGATIVE) Urine Occult Blood Large H (NEGATIVE) Urine Nitrite Negative (NEGATIVE) Urine Bilirubin Small H (NEGATIVE) Urine Urobilinogen 0.2 (0.2-1.0) mg/dL Ur Leukocyte Esterase Negative (NEGATIVE) Urine RBC >100 H /HPF Urine WBC 5-10 H (0-5/HPF) /HPF Ur Epithelial Cells Few (NOT SEEN) /HPF Calcium Oxalate Crystal Many H (NOT SEEN) /HPF Amorphous Sediment Moderate (NOT SEEN) /HPF Urine Bacteria Few (0-FEW/HPF) /HPF Urine Mucus Moderate H (NOT SEEN) /LPF SARS-CoV-2 RNA (KERRI) Negative (NEGATIVE) Departure - Departure Time of Disposition: 18:00 Disposition: Admitted As Inpatient 66 Condition: Undetermined Clinical Impression: History of progressive weakness COPD (chronic obstructive pulmonary disease) Qualifiers: COPD type: chronic bronchitis Chronic bronchitis type: simple Qualified Code(s): J41.0 - Simple chronic bronchitis - Discharge Information *PRESCRIPTION DRUG MONITORING PROGRAM REVIEWED*: No *COPY OF PRESCRIPTION DRUG MONITORING REPORT IN PATIENT JOE: No Referrals: PCP,None [Primary Care Provider] - Forms: ED Department Discharge
[2021-02-14 15:17] VITALS: BP 118/77; PULSE 98
--- NOTE | 2021-02-14 15:21 | CR ---
PROCEDURE INFORMATION: Exam: XR Chest Exam date and time: 02/14/2021 2:57 PM Age: 80 years old Clinical indication: Other: Weakness TECHNIQUE: Imaging protocol: XR of the chest. Views: 1 view. COMPARISON: CT Chest Abdomen Pelvis wo Cont 01/17/2021 6:34 PM FINDINGS: Lungs: The lungs are hyperinflated. There is diffuse mild prominence of interstitium. No focal consolidation. Pleural spaces: Unremarkable. No pleural effusion. No pneumothorax. Heart/Mediastinum: Unremarkable. No cardiomegaly. Bones/joints: Unremarkable. IMPRESSION: Findings suggestive of possible underlying COPD and/or chronic bronchitis
[2021-02-14 15:24] LABS: ANION GAP 12.4 mEq/L (7-13); CHLORIDE,CL 112 mmol/L (98-107); SODIUM,NA 149 mmol/L (136-145)
== END 2021-02-14 18:26 | disposition critical access hospital (66) ==
LOC: DL.ED 14:19
DX: J41.0 Simple chronic bronchitis (principal); R53.1 Weakness; F03.90 Unspecified dementia, unspecified severity, without behavioral disturbance, psychotic disturbance, mood disturbance, and anxiety; N40.0 Benign prostatic hyperplasia without lower urinary tract symptoms; E11.9 Type 2 diabetes mellitus without complications; Z79.84 Long term (current) use of oral hypoglycemic drugs; Z79.899 Other long term (current) drug therapy; Z88.0 Allergy status to penicillin; Z88.8 Allergy status to other drugs, medicaments and biological substances; Z88.2 Allergy status to sulfonamides; Z79.82 Long term (current) use of aspirin; Z20.822 Contact with and (suspected) exposure to COVID-19
CPT/HCPCS: 36415; 71045; 80053; 81001; 83605; 83735; 84484; 85025; 87040; 93005; 99285; U0002; 93010; 99284

== ENCOUNTER 2021-02-14 19:06 | Inpatient (IN) | payer OTHER, MEDICARE, BC ==
--- NOTE | 2021-02-14 19:45 | PCM.HP ---
H&P History of Present Illness - General Date of Service: 02/14/21 Admit Problem/Dx: Admission Diagnosis/Problem Admission Diagnosis/Problem Failure to thrive in adult - History of Present Illness Initial Comments - Free Text/Narative: 80M w/ pmh COPD, chronic hypoxic respiratory failure on home o2 2L at night only, CAD, s/p PPM, BPH, DM, remote abdominal surger w/ 'part of stomach or colon resection' p/w altered mental status. Pt lives w/ in an apartment. has noted progressive weight loss for the past 6-12 months. Up until appx 6 mo ago the pt had been independent. Since then he's lost his ability to ambulate. He is now bed bound. His cognition has also deteriorated to the point of being only oriented to person. Per some work up was attempted by his PCP RIGOBERTO Chang at [facility]. Pt was referred for endoscopy but refused to go. He has not taken any of his meds in months. He is refusing to use his home o2. Over this time the denies seeing any localizing symptoms inclu ding abdominal pain, hemoptysis, BRBPR, fevers. Pt was seen in [facility] ED on 01/17 due to fall and had a dietrich-CT at that time which revealed constipation w/ associated rectal thickening. wanted pt to return home at that time. Today she brings him in because for past 2 days pt has been even more confused than usual, combative and refusing to have his depends changed, screaming. ED staff noted pt was wearing a soaked depends diaper w/ newspapers stuffed in and all of that encased in a garbage bag. He also had an excoriated perineum and coccyx and caked feces all over his groin and streaking up his back. The pt appears emaciated. His weight in the ED today is 75 lbs. The states she is unable to care for him at home. We discussed that pt appears to be slowly dying. She stated that based on prior discussions w/ him that they would not pursue any invasive work up for find specific diagnosis. She stated based on pts prior statements he wished to be DNR/DNI. We discussed various disposition options including hospice, half-way placement and home w/ home health aides. 30 min spent on this Advanced Care Planning discussion. - Related Data Allergies/Adverse Reactions: Allergies Allergy/AdvReac Type Severity Reaction Status Date / Time Penicillins Allergy Severe Hives Verified 02/14/21 19:39 lorazepam [From Ativan] Allergy Agitation Verified 02/14/21 19:39 Sulfa (Sulfonamide Allergy Itching Verified 02/14/21 19:39 Antibiotics) Home Medications: Home Meds Albuterol Sulfate [Ventolin Hfa] 2 puff IH Q6HR PRN 02/09/14 [History] Aspirin [Low Dose Aspirin EC] 81 mg PO DAILY 02/09/14 [History] Cholecalciferol (Vitamin D3) [Vitamin D] 2,000 unit PO DAILY 02/09/14 [History] Citalopram Hydrobromide [Celexa] 20 mg PO DAILY 02/09/14 [History] Docusate Sodium [Colace] 100 mg PO DAILY PRN 02/09/14 [History] Nitroglycerin [Nitrostat] 0.4 mg SL ASDIRECTED PRN 02/09/14 [History] Omeprazole 40 mg PO DAILY 02/09/14 [History] Tamsulosin [Tamsulosin 24 Hr] 0.4 mg PO BEDTIME 02/09/14 [History] Tiotropium [Spiriva Handihaler] 1 cap INH DAILY 02/09/14 [History] Finasteride 5 mg PO DAILY 02/25/17 [History] Budesonide [Pulmicort] 2 ml INH BID 02/14/21 [History] Calcium Carb, Citrate/Vit D3 [Calcium + D3 ER Tablet] 1 tab PO DAILY 02/14/21 [History] Fluticasone/Salmeterol [Advair 250-50] 1 puff INH BID 02/14/21 [History] Formoterol [Perforomist] 2 ml INH BID 02/14/21 [History] atorvaSTATin [Lipitor] 10 mg PO BEDTIME 02/14/21 [History] metFORMIN HCl [Metformin HCl] 500 mg PO WITHBREAKFAST 02/14/21 [History] Past Medical History HEENT History: Reports: Hard of Hearing, Impaired Vision Cardiovascular History: Reports: Pacemaker, Stents Respiratory History: Reports: COPD Genitourinary History: Reports: BPH Neurological History: Reports: Other (See Below) Other Neuro History: very forgetful Endocrine/Metabolic History: Reports: Diabetes, Type II - Infectious Disease History Infectious Disease History: Reports: None - Past Surgical History Cardiovascular Surgical History: Reports: Pacer GI Surgical History: Reports: Other (See Below) Other GI Surgeries/Procedures: multiple abd surgeries states that they go in and drain things and put in stents? Social & Family History - Family History Family Medical History: No Pertinent Family History - Caffeine Use Caffeine Use: Reports: Coffee H&P Review of Systems - Review of Systems: Review Of Systems: Unable To Obtain Reason Not Obtained: due to altered mental status Exam - Exam Exam: See Below - Exam Quality Assessment: No: Supplemental Oxygen General: Lethargic (oriented x 1), Other HEENT: Conjunctiva Clear, Other (temporal wasting) Neck: Supple Lungs: Other (poor air movement) Cardiovascular: Regular Rate, Regular Rhythm GI/Abdominal Exam: Soft, No Distention, Other (mild diffuse TTP) (Male) Exam: Other (small foreskin cyst at tip) Rectal (Males) Exam: Other (no masses palpated but entire rectum distended and full of pasty stool, no blood) Extremities: Other (atrophic extremities) Skin: Other (scattered excoriations, severely irritated perineum) Neurological: Other (slurred speech) Neuro Extensive - Mental Status: Disorientation to Place, Disorientation to Time, Opens Eyes to Commands, Slow Response to Commands Neuro Extensive - Motor, Sensory, Reflexes: No: Tremor Psychiatric: Depressed Problem List Initiated/Reviewed/Updated: Yes Orders Last 24hrs: Active Orders 24 hr Category Date Time Status Patient Status [ADT] Routine ADT 02/14/21 19:29 Active Oxygen Therapy [RC] PRN Care 02/14/21 19:29 Active Up With Assistance [RC] ASDIRECTED Care 02/14/21 19:29 Active VTE/DVT Education [RC] PER UNIT ROUTINE Care 02/14/21 19:29 Active Vital Signs [RC] Q4H Care 02/14/21 19:29 Active OT Evaluation and Treatment [CONS] Routine Cons 02/14/21 19:29 Active PT Evaluation and Treatment [CONS] Routine Cons 02/14/21 19:29 Active Mechanical Soft Diet [DIET] Diet 02/14/21 Breakfast Active COMPREHENSIVE METABOLIC PN,CMP [CHEM] AM Lab 02/15/21 05:11 Ordered MAGNESIUM [CHEM] AM Lab 02/15/21 05:11 Ordered PHOSPHORUS [CHEM] AM Lab 02/15/21 05:11 Ordered Dextrose 5% in Water @ 75 MLS/HR(1000ml) Med 02/14/21 19:45 Ordered Dextrose 5% in Water 1,000 ml IV ASDIRECTED Heparin Sodium Med 02/14/21 22:00 Ordered 5,000 units SUBCUT Q8HR Resuscitation Status Routine Resus Stat 02/14/21 19:29 Ordered Medication Orders Heparin Sodium (Porcine) (Heparin Sodium 5,000 Units/Ml Vial) 5,000 units SUBCUT Q8HR MIA Dextrose/Water (Dextrose 5% In Water) 1,000 mls @ 75 mls/hr IV ASDIRECTED MIA Assessment/Plan Comment:: #hypothermia #severe protein and calorie malnutrition #failure to thrive #hypernatremia #VICKY #clinical dehydration #acute metabolic encephalopathy superimposed on prior cognitive impairment - specific etiology remains unclear - overall picture has appearance of end stage malignancy - recent dietrich-CT only revealed rectal thickening which could represent colorectal ca - progression appears too rapid to be due end stage dementia unless is minimizing the time frame - another alternative could be severe depression - would seek collateral information from PCP Charlene - would also reach out to pt's daughter to rule out elder neglect - states pt did not want to pursue invasive work up - even if pt was to undergo a work up he is too malnourished to be a candidate for chemo or surgery if one was an option - states pt would not want a PEG tube - CM/SW needs to continue discussion w/ re placement in NH vs home hospice - will send ESR, CEA, CA19-9, PSA - start gentle d5w to correct free water deficit - monitor for re-feeding syndrome - swallow evaluation #chronic hypoxic respiratory failure / COPD / CAD / BPH / DM - hold most meds as his swallowing is questionable - he has not taken his meds in months - only continued the bare minimum like aspirin and flomax - ED had placed a perez cath which will continue tonight not to cause him more duress - would re-evaluate the need tomorrow PPX - SQH DNR/DNI
[2021-02-14] MEDS ORDERED: Docusate Sodium 100 MG Cap PO PRN (20:22)
[2021-02-14] MEDS: Dextrose 5% in Water 1,000 ML IV SCH (20:28)
[2021-02-14] MEDS: Tamsulosin 0.4 MG Cap.ER PO SCH (22:10)
[2021-02-14] MEDS: Heparin Sodium 5,000 Units/ML Vial SUBCUT SCH (22:10)
[2021-02-15] MEDS: Heparin Sodium 5,000 Units/ML Vial SUBCUT SCH ×2 (06:00→14:51)
[2021-02-15 07:01] LABS: ANION GAP 13.8 mEq/L (7-13); CHLORIDE,CL 109 mmol/L (98-107); SODIUM,NA 147 mmol/L (136-145)
[2021-02-15] MEDS ORDERED: Glucagon,Human Recombinant 1 MG Vial IM PRN (08:02)
[2021-02-15] MEDS ORDERED: 50% Dextrose in Water 50 ML Syringe IV PRN (08:02)
[2021-02-15] MEDS ORDERED: Albuterol 6.7 GM Inhaler INH PRN (08:06)
--- NOTE | 2021-02-15 08:13 | PCM.SN.2 ---
- Free Text/Narrative Note: START OF DOCTOR EMAMIS PROGRESS NOTE Subjective: The patient indicates that he is tired/sleeping and declines interview Objective: General: -Somnolent -No acute distress -No dyspnea -No tachypnea -Cachectic Heart: -Regular rate -Regular rhythm -No murmurs -No gallops -No rubs Lungs: -No wheeze -No rhonchi -No rales Abdomen: -Normal bowel sounds in all four quadrants -No rebound -No guarding -No tenderness Extremities: -2/4 pulse in all four extremities -No clubbing -No cyanosis -No edema Additional Details / Additional Findings / Exceptions / Miscellaneous: Pertinent Laboratory Results / Pertinent Radiology Results / Pertinent Diagnostic Results / Pertinent Vital Signs: Vital signs stable Assessment / Plan: Malnutrition/failure to thrive. CEA pending. CA 199 pending. Check TSH, free T4, B12, folate, prealbumin. I appreciate the dietitian evaluate the patient. Megace 40 mg p.o. twice daily History of rectosigmoid thickening per CT. Query mass. Per previous documentation, the patient's family would not want any further investigation/intervention/treatment Hypernatremia. Will monitor sodium levels intermittently. IV D5W at 75 mils per hour Diabetes. Will check fingerstick glucose before every meal and at bedtime and provide sulci scale plus Metformin 500 mg p.o. daily Hyperbilirubinemia. Will monitor LFTs periodically with CMP. IV D5W at 75 mils per hour Elevated PSA. The patient would not be a candidate for treatment/intervention even if malignancy was detected COPD, O2 dependent 2 L. Spiriva 18 mcg inhaled daily plus formoterol 20 mcg inhaled twice daily plus Pulmicort 0.5 mg inhaled twice daily plus Advair discus 250/50 mcg inhaled twice daily Coronary artery disease, status post stent. Aspirin 81 mg p.o. daily plus Lipitor 10 mg p.o. nightly Status post pacemaker placement. I see no documentation of a history of sick sinus syndrome or atrial fibrillation. I will attempt to ascertain the reason as to why this was placed BPH. Flomax 0.4 mg p.o. daily plus finasteride 5 mg p.o. daily Depression. Celexa 20 mg p.o. daily GERD. Prilosec 40 mg p.o. daily History of constipation Hyperlipidemia. Lipitor 10 mg p.o. nightly History of cholelithiasis Hypertension History of right pulmonary mass Manpreet scopic hematuria DVT prophylaxis. Heparin 5000 units subcutaneously every 8 hours Disposition: I will discussed the patient's case with case management/social work and request hospice consult. Patient would be medically stable for discharge to hospice if he and/or his family is agreeable END OF DOCTOR EMAMIS PROGRESS NOTE
[2021-02-15] MEDS ORDERED: Non-Formulary Medication 1 Each (Formoterol [Perforomist] 20 MCG/2 ML Neb) INH SCH (09:00)
[2021-02-15] MEDS: Aspirin 81 MG Tab.EC PO SCH (09:38)
[2021-02-15] MEDS: Citalopram 20 MG Tab PO SCH (09:38)
[2021-02-15] MEDS: Omeprazole 20 MG Cap.CR PO SCH (09:39)
[2021-02-15] MEDS: metFORMIN 500 MG Tab PO SCH (09:39)
[2021-02-15] MEDS: Megestrol 40 MG Tab PO SCH ×2 (09:40→22:08)
[2021-02-15] MEDS: Finasteride 5 MG Tab PO SCH (09:40)
[2021-02-15] MEDS: Formoterol/Mometasone 200-5 MCG 8.8 GM Inhaler IH SCH ×2 (09:40→22:08)
[2021-02-15] MEDS: Tiotropium Inhaler 18 MCG Inhalation Powder Cap Kit of 5 INH SCH (09:41)
[2021-02-15] MEDS: Dextrose 5% in Water 1,000 ML IV SCH ×2 (09:42→23:39)
[2021-02-15] MEDS: Insulin Lispro 100 Units/ML 3 ML Vial SUBCUT SCH ×4 (09:53→21:43)
[2021-02-15] MEDS: Budesonide 0.5 MG/2 ML Neb Susp INH SCH ×2 (10:07→17:33)
[2021-02-15] MEDS ORDERED: Sodium Chloride 0.9% 10 ML Syringe FLUSH PRN (15:12)
[2021-02-15] MEDS ORDERED: Insulin Lispro 100 Units/ML 3 ML Vial SUBCUT ONE ×2 (17:17→18:37)
[2021-02-15] MEDS ORDERED: Acetaminophen 325 MG Tab PO PRN (18:37)
--- NOTE | 2021-02-15 19:01 | CR ---
PROCEDURE INFORMATION: Exam: XR Abdomen Exam date and time: 02/15/2021 6:47 PM Age: 80 years old Clinical indication: Other: Abdominal pain TECHNIQUE: Imaging protocol: XR of the abdomen. Views: Frontal supine view of the abdomen. 1 View. COMPARISON: CT Chest Abdomen Pelvis wo Cont 01/17/2021 6:34 PM FINDINGS: Gastrointestinal tract: Gaseous distention of several loops of large and small bowel present consistent with ileus. Intraperitoneal space: Question of free air under the hemidiaphragms. Postoperative changes of the right abdomen. Bones/joints: The lumbar spine demonstrates mild degenerative changes at multiple levels. IMPRESSION: 1. Question of free air under the hemidiaphragms. Further evaluation is recommended. 2. Gaseous distention of several loops of large and small bowel present consistent with ileus.
[2021-02-15] MEDS: Ondansetron 4 MG/2 ML SDV IVPUSH PRN ×2 (19:15→21:43)
--- NOTE | 2021-02-15 19:42 | CR ---
PROCEDURE INFORMATION: Exam: XR Abdomen Exam date and time: 02/15/2021 7:22 PM Age: 80 years old Clinical indication: Other: Free air on kub TECHNIQUE: Imaging protocol: XR of the abdomen. Views: Frontal supine view of the abdomen. 1 View. COMPARISON: CR Abdomen 1V Flat 02/15/2021 6:47 PM FINDINGS: Gastrointestinal tract: Gaseous distention of several loops of large and small bowel present consistent with ileus. Intraperitoneal space: No definite evidence of pneumoperitoneum as imaged. Postoperative changes of the right abdomen. Bones/joints: The lumbar spine demonstrates mild degenerative changes at multiple levels. IMPRESSION: 1. No definite evidence of pneumoperitoneum as imaged. 2. Gaseous distention of several loops of large and small bowel present consistent with ileus.
[2021-02-15] MEDS: Tamsulosin 0.4 MG Cap.ER PO SCH (21:42)
[2021-02-15] MEDS: Docusate Sodium 100 MG Cap PO SCH ×2 (21:45→22:08)
[2021-02-15] MEDS: atorvaSTATin 10 MG Tab PO SCH (22:08)
[2021-02-15] MEDS ORDERED: Ondansetron 4 MG/2 ML SDV IVPUSH PRN (22:22)
[2021-02-16] MEDS: Morphine 2 MG/ML SYRINGE IVPUSH PRN ×2 (00:27→04:47)
[2021-02-16] MEDS: Omeprazole 20 MG Cap.CR PO SCH (06:04)
--- NOTE | 2021-02-16 07:36 | PCM.SN.2 ---
- Free Text/Narrative Note: START OF DOCTOR FLORES PROGRESS NOTE Subjective: The patient is seen while sleeping. Given his poor short and long-term prognosis, I have allowed the patient to sleep and I will return to interview him once he awakens Objective: General: -Somnolent -No acute distress -No dyspnea -No tachypnea -Cachectic Heart: -Regular rate -Regular rhythm -No murmurs -No gallops -No rubs Lungs: -No wheeze -No rhonchi -No rales Abdomen: -Normal bowel sounds in all four quadrants -No rebound -No guarding -No tenderness Extremities: -2/4 pulse in all four extremities -No clubbing -No cyanosis -No edema Additional Details / Additional Findings / Exceptions / Miscellaneous: Pertinent Laboratory Results / Pertinent Radiology Results / Pertinent Diagnostic Results / Pertinent Vital Signs: Vital signs stable Assessment / Plan: Ileus. Per nursing staff, the patient had a large bowel movement on the night of February 15, 2021. We will advance diet as tolerated from n.p.o. status. IV half-normal saline at 75 mils per hour plus Colace 200 mg p.o. twice daily plus senna 17.2 mg p.o. twice daily Malnutrition/failure to thrive. CEA pending. CA 199 pending. Check TSH, free T4, B12, folate, prealbumin. I appreciate the dietitian evaluate the patient. Megace 40 mg p.o. twice daily History of rectosigmoid thickening per CT. Query mass. Per previous documentation, the patient's family would not want any further investigation/intervention/treatment Hypernatremia. Resolved. Will monitor sodium levels intermittently. Diabetes. Will check fingerstick glucose before every meal and at bedtime and provide sulci scale plus Metformin 500 mg p.o. daily Hyperbilirubinemia. Will monitor LFTs periodically with CMP. Elevated PSA. The patient would not be a candidate for treatment/intervention even if malignancy was detected COPD, O2 dependent 2 L. Spiriva 18 mcg inhaled daily plus Pulmicort 0.5 mg inhaled twice daily plus Advair discus 250/50 mcg inhaled twice daily Coronary artery disease, status post stent. Aspirin 81 mg p.o. daily plus Lipitor 10 mg p.o. nightly Status post pacemaker placement. I see no documentation of a history of sick sinus syndrome or atrial fibrillation. I will attempt to ascertain the reason as to why this was placed BPH. Flomax 0.4 mg p.o. daily plus finasteride 5 mg p.o. daily Depression. Celexa 20 mg p.o. daily GERD. Prilosec 40 mg p.o. daily History of constipation Hyperlipidemia. Lipitor 10 mg p.o. nightly History of cholelithiasis Hypertension History of right pulmonary mass Manpreet scopic hematuria DVT prophylaxis. Lovenox 30 mg subcutaneously daily Disposition: I will discussed the patient's case with case management/social work and request hospice consult. Patient would be medically stable for discharge to hospice if he and/or his family is agreeable. We will continue instituting palliative measures for this patient END OF DOCTOR SHAUNAS PROGRESS NOTE
[2021-02-16] MEDS: Budesonide 0.5 MG/2 ML Neb Susp INH SCH ×3 (07:50→17:38)
[2021-02-16] MEDS: Insulin Lispro 100 Units/ML 3 ML Vial SUBCUT SCH ×4 (08:07→22:23)
[2021-02-16] MEDS: Enoxaparin 30 MG/0.3 ML Syringe SUBCUT SCH (10:20)
[2021-02-16] MEDS: Citalopram 20 MG Tab PO SCH (12:28)
[2021-02-16] MEDS: metFORMIN 500 MG Tab PO SCH (12:28)
[2021-02-16] MEDS: Aspirin 81 MG Tab.EC PO SCH (12:29)
[2021-02-16] MEDS: Formoterol/Mometasone 200-5 MCG 8.8 GM Inhaler IH SCH ×2 (12:29→22:23)
[2021-02-16] MEDS: Megestrol 40 MG Tab PO SCH ×2 (12:29→22:24)
[2021-02-16] MEDS: Finasteride 5 MG Tab PO SCH (12:29)
[2021-02-16] MEDS: Tiotropium Inhaler 18 MCG Inhalation Powder Cap Kit of 5 INH SCH (12:29)
[2021-02-16] MEDS: Docusate Sodium 100 MG Cap PO SCH ×2 (12:29→22:23)
[2021-02-16] MEDS: Sodium Chloride 0.45% 1,000 ML IV SCH (12:58)
[2021-02-16] MEDS: Tamsulosin 0.4 MG Cap.ER PO SCH (22:23)
[2021-02-16] MEDS: atorvaSTATin 10 MG Tab PO SCH (22:23)
[2021-02-17] MEDS: Sodium Chloride 0.45% 1,000 ML IV SCH ×2 (02:21→14:58)
[2021-02-17] MEDS: Morphine 2 MG/ML SYRINGE IVPUSH PRN ×3 (03:52→22:32)
[2021-02-17] MEDS: Omeprazole 20 MG Cap.CR PO SCH (05:30)
--- NOTE | 2021-02-17 07:27 | PCM.SN.2 ---
- Free Text/Narrative Note: START OF DOCTOR MANOHARMISamia PROGRESS NOTE Subjective: The patient is alert but encephalopathic. He is unable to provide reliable feedback. I attempted to explain to the patient his current medical condition and plan of care. The patient poses no questions to me Objective: General: -Alert but not oriented to place or year but is alert to name -No acute distress -No dyspnea -No tachypnea -Cachectic Heart: -Regular rate -Regular rhythm -No murmurs -No gallops -No rubs Lungs: -No wheeze -No rhonchi -No rales Abdomen: -Normal bowel sounds in all four quadrants -No rebound -No guarding -No tenderness Extremities: -2/4 pulse in all four extremities -No clubbing -No cyanosis -No edema Additional Details / Additional Findings / Exceptions / Miscellaneous: Pertinent Laboratory Results / Pertinent Radiology Results / Pertinent Diagnostic Results / Pertinent Vital Signs: Temperature 9 6.4 degrees, otherwise vital signs stable Assessment / Plan: Ileus. Per nursing staff, the patient had a large bowel movement on the night of February 15, 2021. We will advance diet as tolerated from n.p.o. status. IV half-normal saline at 75 mils per hour plus Colace 200 mg p.o. twice daily plus senna 17.2 mg p.o. twice daily Malnutrition/failure to thrive. CEA pending. CA 199 pending. I appreciate the dietitian evaluate the patient. Megace 40 mg p.o. twice daily History of rectosigmoid thickening per CT. Query mass. Per previous documentation, the patient's family would not want any further invest igation/intervention/treatment Hypernatremia. Resolved. Will monitor sodium levels intermittently. Diabetes. Will check fingerstick glucose before every meal and at bedtime and provide sulci scale plus Metformin 500 mg p.o. daily Hyperbilirubinemia. Will monitor LFTs periodically with CMP. Elevated PSA. The patient would not be a candidate for treatment/intervention even if malignancy was detected COPD, O2 dependent 2 L. Spiriva 18 mcg inhaled daily plus Pulmicort 0.5 mg inhaled twice daily plus Advair discus 250/50 mcg inhaled twice daily Coronary artery disease, status post stent. Aspirin 81 mg p.o. daily plus Lipitor 10 mg p.o. nightly Status post pacemaker placement. I see no documentation of a history of sick sinus syndrome or atrial fibrillation. I will attempt to ascertain the reason as to why this was placed BPH. Flomax 0.4 mg p.o. daily plus finasteride 5 mg p.o. daily Depression. Celexa 20 mg p.o. daily GERD. Prilosec 40 mg p.o. daily History of constipation Hyperlipidemia. Lipitor 10 mg p.o. nightly History of cholelithiasis Hypertension History of right pulmonary mass Manpreet scopic hematuria DVT prophylaxis. Lovenox 30 mg subcutaneously daily Disposition: I will discussed the patient's case with case management/social work and request hospice consult. Patient would be medically stable for discharge to hospice if he and/or his family is agreeable. We will continue instituting palliative measures for this patient END OF DOCTOR FLORES PROGRESS NOTE
[2021-02-17] MEDS: Budesonide 0.5 MG/2 ML Neb Susp INH SCH ×2 (07:34→18:30)
[2021-02-17] MEDS: Enoxaparin 30 MG/0.3 ML Syringe SUBCUT SCH (09:28)
[2021-02-17] MEDS: metFORMIN 500 MG Tab PO SCH (09:32)
[2021-02-17] MEDS: Insulin Lispro 100 Units/ML 3 ML Vial SUBCUT SCH ×4 (09:33→22:38)
[2021-02-17] MEDS: Finasteride 5 MG Tab PO SCH (09:34)
[2021-02-17] MEDS: Formoterol/Mometasone 200-5 MCG 8.8 GM Inhaler IH SCH ×2 (09:34→22:37)
[2021-02-17] MEDS: Megestrol 40 MG Tab PO SCH ×2 (09:34→22:38)
[2021-02-17] MEDS: Citalopram 20 MG Tab PO SCH (09:34)
[2021-02-17] MEDS: Aspirin 81 MG Tab.EC PO SCH (09:34)
[2021-02-17] MEDS: Docusate Sodium 100 MG Cap PO SCH ×2 (09:34→22:38)
[2021-02-17] MEDS: Tiotropium Inhaler 18 MCG Inhalation Powder Cap Kit of 5 INH SCH (09:34)
[2021-02-17] MEDS: atorvaSTATin 10 MG Tab PO SCH (22:38)
[2021-02-17] MEDS: Tamsulosin 0.4 MG Cap.ER PO SCH (22:38)
[2021-02-18] MEDS: Morphine 2 MG/ML SYRINGE IVPUSH PRN (02:36)
[2021-02-18] MEDS: Sodium Chloride 0.45% 1,000 ML IV SCH (05:08)
[2021-02-18] MEDS: Omeprazole 20 MG Cap.CR PO SCH (05:10)
[2021-02-18 07:23] LABS: ANION GAP 11.8 mEq/L (7-13); CHLORIDE,CL 100 mmol/L (98-107); SODIUM,NA 134 mmol/L (136-145)
--- NOTE | 2021-02-18 07:23 | PCM.SN.2 ---
- Free Text/Narrative Note: START OF DOCTOR EMAMIS PROGRESS NOTE Subjective: The patient is alert but encephalopathic and unable to provide feedback Objective: General: -Alert -No acute distress -No dyspnea -No tachypnea -Cachectic Heart: -Regular rate -Regular rhythm -No murmurs -No gallops -No rubs Lungs: -No wheeze -No rhonchi -No rales Abdomen: -Normal bowel sounds in all four quadrants -No rebound -No guarding -No tenderness Extremities: -2/4 pulse in all four extremities -No clubbing -No cyanosis -No edema Additional Details / Additional Findings / Exceptions / Miscellaneous: Pertinent Laboratory Results / Pertinent Radiology Results / Pertinent Diagnostic Results / Pertinent Vital Signs: The patient saturating 92% on 2 L, hemoglobin 12.6, platelet count 85,000 Assessment / Plan: Ileus. Per nursing staff, the patient had a large bowel movement on the night of February 15, 2021. We will advance diet as tolerated from n.p.o. status. IV half-normal saline at 75 mils per hour plus Colace 200 mg p.o. twice daily plus senna 17.2 mg p.o. twice daily Anemia. Monitor hemoglobin levels intermittently Thrombocytopenia. Monitor platelet counts intermittently Malnutrition/failure to thrive. CEA pending. CA 199 pending. I appreciate the dietitian evaluate the patient. Megace 40 mg p.o. twice daily History of rectosigmoid thickening per CT. Query mass. Per previous documentation, the patient's family would not want any further investigation/intervention/treatment Hypernatremia. Resolved. Will monitor sodium levels intermittently. Diabetes. Will check fingerstick glucose before every meal and at bedtime and provide sulci scale plus Metformin 500 mg p.o. daily Hyperbilirubinemia. Will monitor LFTs periodically with CMP. Elevated PSA. The patient would not be a candidate for treatment/intervention even if malignancy was detected COPD, O2 dependent 2 L. Spiriva 18 mcg inhaled daily plus Pulmicort 0.5 mg inhaled twice daily plus Advair discus 250/50 mcg inhaled twice daily Coronary artery disease, status post stent. Aspirin 81 mg p.o. daily plus Lipitor 10 mg p.o. nightly Status post pacemaker placement. I see no documentation of a history of sick sinus syndrome or atrial fibrillation. I will attempt to ascertain the reason as to why this was placed BPH. Flomax 0.4 mg p.o. daily plus finasteride 5 mg p.o. daily Depression. Celexa 20 mg p.o. daily GERD. Prilosec 40 mg p.o. daily History of constipation Hyperlipidemia. Lipitor 10 mg p.o. nightly History of cholelithiasis Hypertension History of right pulmonary mass Manpreet scopic hematuria DVT prophylaxis. Lovenox 30 mg subcutaneously daily Disposition: I will discussed the patient's case with case management/social work and request hospice consult. Patient would be medically stable for discharge to hospice if he and/or his family is agreeable. We will continue instituting palliative measures for this patient END OF DOCTOR FLORES PROGRESS NOTE
[2021-02-18 07:40] VITALS: BP 123/78; PULSE 73
[2021-02-18] MEDS: Budesonide 0.5 MG/2 ML Neb Susp INH SCH (08:23)
[2021-02-18] MEDS: Insulin Lispro 100 Units/ML 3 ML Vial SUBCUT SCH (08:48)
[2021-02-18] MEDS: metFORMIN 500 MG Tab PO SCH (08:48)
--- NOTE | 2021-02-18 09:10 | PCM.SN.2 ---
- Free Text/Narrative Note: START OF DOCTOR EMAMIS DISCHARGE SUMMARY Date of Admission: February 14, 2021 Date of Discharge: 9:07 AM on February 18, 2021 Primary Diagnosis: Malnutrition/failure to thrive Secondary Diagnosis: Ileus History of rectosigmoid thickening per CT, query mass. Per previous documentation, the patient's family would not want any further investigation/intervention/treatment Hyponatremia, resolved Diabetes Hyperbilirubinemia Elevated PSA, the patient would not be a candidate for treatment/intervention even if malignancy was detected COPD, O2 dependent at 2 L Coronary artery disease, status post stent Patient status post pacemaker placement however I see no documentation of a history of sick sinus syndrome or atrial fibrillation BPH Depression GERD History of constipation Hyperlipidemia History of cholelithiasis Hypertension History of right pulmonary mass Microscopic hematuria Thrombocytopenia Anemia Consultations: None Condition on Discharge: Fair Disposition: The patient will be advised to follow-up with his primary care physician or provider 3 to 5 days post discharge for posthospitalization evaluation It is recommended that the patient be enrolled in hospice as soon as possible given his poor short and long-term prognosis Discharge Medications: Celexa 20 mg p.o. daily Colace 200 mg p.o. twice daily Senna 17.2 mg p.o. twice daily Nitroglycerin 0.4 mg sublingually every 5 minutes as needed chest pain. 911 is to be called if there is no resolution of chest pain after the third dose Vitamin D 2000 IU p.o. daily Spiriva 18 mcg inhaled daily Flomax 0.4 mg p.o. daily Prilosec 40 mg p.o. daily Metformin 500 mg p.o. daily Megace 40 mg p.o. twice daily Insulin lispro subcutaneously before every meal and at bedtime per sliding scale Formoterol 2 mL inhaled twice daily Advair Diskus: 250/50 mc puff twice daily Finasteride 5 mg p.o. daily Proventil HFA: 90 elaine as per spray: 2 puffs every 6 hours Aspirin 81 mg p.o. daily Lipitor 10 mg p.o. nightly Pulmicort 0.5 mg inhaled twice daily END OF DOCTOR EMAMIS DISCHARGE SUMMARY
[2021-02-18] MEDS: Formoterol/Mometasone 200-5 MCG 8.8 GM Inhaler IH SCH (09:37)
[2021-02-18] MEDS: Aspirin 81 MG Tab.EC PO SCH (09:37)
[2021-02-18] MEDS: Citalopram 20 MG Tab PO SCH (09:37)
[2021-02-18] MEDS: Docusate Sodium 100 MG Cap PO SCH (09:37)
[2021-02-18] MEDS: Finasteride 5 MG Tab PO SCH (09:38)
[2021-02-18] MEDS: Megestrol 40 MG Tab PO SCH (09:38)
[2021-02-18] MEDS: Tiotropium Inhaler 18 MCG Inhalation Powder Cap Kit of 5 INH SCH (09:38)
[2021-02-18] MEDS: Enoxaparin 30 MG/0.3 ML Syringe SUBCUT SCH (10:13)
== END 2021-02-18 10:20 | DRG 640 ==
LOC: DL.MS 19:06
PROVIDERS: ADMIT Internal Medicine; ATTEND Internal Medicine
DX: E43 Unspecified severe protein-calorie malnutrition (principal); G93.41 Metabolic encephalopathy; E87.1 Hypo-osmolality and hyponatremia; N17.9 Acute kidney failure, unspecified; K56.7 Ileus, unspecified; J96.11 Chronic respiratory failure with hypoxia; Z68.1 Body mass index [BMI] 19.9 or less, adult; E87.0 Hyperosmolality and hypernatremia; K21.9 Gastro-esophageal reflux disease without esophagitis; J44.9 Chronic obstructive pulmonary disease, unspecified; E80.6 Other disorders of bilirubin metabolism; I25.10 Atherosclerotic heart disease of native coronary artery without angina pectoris; E11.9 Type 2 diabetes mellitus without complications; N40.0 Benign prostatic hyperplasia without lower urinary tract symptoms; D64.9 Anemia, unspecified; F32.9 Major depressive disorder, single episode, unspecified; E86.0 Dehydration; R91.1 Solitary pulmonary nodule; K59.00 Constipation, unspecified; E78.5 Hyperlipidemia, unspecified; I10 Essential (primary) hypertension; R31.29 Other microscopic hematuria; H91.90 Unspecified hearing loss, unspecified ear; H54.7 Unspecified visual loss; D69.6 Thrombocytopenia, unspecified; Z95.5 Presence of coronary angioplasty implant and graft; Z95.0 Presence of cardiac pacemaker; Z79.82 Long term (current) use of aspirin; Z79.84 Long term (current) use of oral hypoglycemic drugs; Z88.0 Allergy status to penicillin; Z88.8 Allergy status to other drugs, medicaments and biological substances; Z88.2 Allergy status to sulfonamides; Z79.899 Other long term (current) drug therapy
CPT/HCPCS: 36415; 74018; 80053; 82140; 82378; 82607; 82746; 82947; 83735; 84100; 84134; 84153; 84295; 84439; 84443; 85025; 85651; 86301; 92610-GN; 94640; A9270-GY; J1644; J1650; J1815-GY; J2270; J2405; J7030; J7060; U0002